=== PATIENT | male | born 1990 | race Caucasian/White ===

== ENCOUNTER 2020-12-29 21:01 | Emergency (ER) | payer SELFPAY ==
[2020-12-30] MEDS ORDERED: ATARAX25 MG PO (19:16)
== END 2020-12-30 06:30 | disposition home or self-care (01) ==
LOC: FER 21:01
DX: T78.3XXA Angioneurotic edema, initial encounter (principal); Z88.1 Allergy status to other antibiotic agents
CPT/HCPCS: 96372; J0171; J1200; J2405; J2930; J7030

== ENCOUNTER 2020-12-30 15:52 | Emergency (ER) | payer SELFPAY ==
[2020-12-30 18:14] LABS: BASOPHIL 0.1 % (0-2); EOSINOPHIL 0 % (0-5); HCT 43.4 % (42.0-52.0); HGB 15.4 g/dl (13.2-18.0); MCH 29.8 pg (25.0-31.0); MCHC 35.5 g/dL (32.0-36.0); MCV 84.1 fL (78.0-100.0); MONOCYTE 7.3 % (0-12); MPV 9.5 fL (6.0-9.5); NRBC 0; PLT 357 K/uL (150-400); RBC 5.16 M/uL (4.70-6.00); RDW 13.2 % (11.5-14.0); WBC 14.9 K/uL (4.0-10.5)
[2020-12-30 18:29] LABS: BUN/CREAT RATIO (CALC) 14.5 RATIO; CREATININE 0.83 mg/dL (0.67-1.17); POTASSIUM 3.7 mmol/L (3.5-5.1)
[2020-12-30] MEDS ORDERED: ATARAX25 MG PO (19:16)
== END 2020-12-30 19:51 | disposition home or self-care (01) ==
LOC: FER 15:52
PROVIDERS: Nurse Practitioner Family
DX: F41.1 Generalized anxiety disorder (principal); F41.0 Panic disorder [episodic paroxysmal anxiety]; Z88.0 Allergy status to penicillin; Z88.1 Allergy status to other antibiotic agents
CPT/HCPCS: 36415; 80048; 85025; 99284